=== PATIENT | female | born 1960 | race Caucasian/White ===

== ENCOUNTER → 2017-06-06 | Outpatient (CLI) | payer MEDICAID ==
[2017-06-06 08:46] LABS: Basophils % (A) 0 %; CH 29.3; CHCM 33.5; Eosinophils % (A) 1 %; HCT 43.2 % (34.0-46.0); HDW 3.09; HGB 14.8 gm/dL (11.4-16.0); Luc # (Auto) 0.13; Luc % (Auto) 1; Lymphocytes # (A) 2.4 k/uL (1.0-4.8); Lymphocytes % (A) 26 %; MCH 30.1 pg (25.0-35.0); MCHC 34.2 g/dL (31.0-37.0); Mean Platelet Volume 6.9; Monocytes # (A) 0.5 k/uL (0-1.0); Monocytes % (A) 5 %; Neutrophils # (A) 6.2 k/uL (1.3-7.7); Neutrophils % (A) 67 %; RBC 4.91 m/uL (3.80-5.40); RDW 12.8 % (11.5-15.5); WBC 9.3 k/uL (3.8-10.6); WBC (Perox) 9.72
[2017-06-06 10:21] LABS: ALT 48 U/L (9-52); AST 15 U/L (14-36); Alkaline Phosphatase 70 U/L (38-126); Anion Gap 13 mmol/L; Blood Urea Nitrogen 15 mg/dL (7-17); Calcium 9.9 mg/dL (8.4-10.2); Carbon Dioxide 28 mmol/L (22-30); Chloride 104 mmol/L (98-107); Cholesterol 205 mg/dL (<200); Glucose 130 mg/dL (74-99); HDL Cholesterol 49 mg/dL (40-60); Non-African American GFR(MDRD) >60 (>60 ml/min/1.73 sqM); Potassium 4.4 mmol/L (3.5-5.1); Sodium 145 mmol/L (137-145); Total Bilirubin 0.6 mg/dL (0.2-1.3); Total Protein 7.2 g/dL (6.3-8.2); Triglycerides 111 mg/dL (<150)
[2017-06-06 11:09] LABS: Vitamin B12 526 pg/mL (239-931)
== END | disposition home or self-care (01) ==
LOC: LABWHC1 07:38
PROVIDERS: ATTEND Family Medicine
DX: Z00.00 Encounter for general adult medical examination without abnormal findings (principal)
CPT/HCPCS: 36415; 80053; 80061; 82306; 82607; 84443; 85025

== ENCOUNTER → 2017-06-16 | Outpatient (CLI) | payer MEDICAID ==
--- NOTE | 2017-06-16 08:00 | MR ---
MR lumbar spine wo con lumbago w/sciatic rt side Multiplanar, multiecho imaging of the lumbar spine was obtained without contrast on a 3 Obdulia magnet. REFERENCE:None. FINDINGS: There is a 1 cm cystic lesion in the upper pole of the left kidney. Paraspinal soft tissue s are otherwise normal. Vertebral body height and alignment are maintained. There is no spondylolysis or spondylolisthesis. C ord signal is maintained. The conus ends at the level of the mid body of L2. At T12-L1, there is minimal capsulitis within the facets. At L1-2, there is mild hypertrophic change within the facets. At L2-3, the intervertebral foramina are well maintained. There is a minimal, diffuse disc displaceme nt. There are mild hypertrophic changes and capsulitis within the facets. At L3-4, the intervertebral foramina are well maintained. There is no significant compressive discopa thy. There are minimal hypertrophic changes in the facets. At L4-5, there is mild disc space loss. There is a diffuse disc displacement. The intervertebral fora thelma are well maintained. There are hypertrophic changes in the facets. At L5-S1, there is mild disc space loss. Intervertebral foramina are well maintained. There is no sig nificant compressive discopathy. There moderate hypertrophic change and capsulitis within the facets. IMPRESSION: 1. NO SIGNIFICANT COMPRESSIVE DISCOPATHY OR NEURAL COMPRESSION. 2. DIFFUSE FACET ARTHROPATHY. 3. MILD DEGENERATIVE DISC DISEASE AT MOST LEVELS.
== END | disposition home or self-care (01) ==
LOC: RADMRIMAIN 07:01
PROVIDERS: ATTEND Family Medicine
DX: M51.17 Intervertebral disc disorders with radiculopathy, lumbosacral region (principal); M46.86 Other specified inflammatory spondylopathies, lumbar region
CPT/HCPCS: 72148

== ENCOUNTER → 2017-06-22 | Outpatient (CLI) | payer MEDICAID ==
--- NOTE | 2017-06-22 14:44 | MM ---
Reason for exam: screening (asymptomatic). Last mammogram was performed 2 years ago. History: Patient has history of other cancer at age 54. Family history of breast cancer in paternal grandmother at age 90. Physical Findings: A clinical breast exam by your physician is recommended on an annual basis and results should be correlated with mammographic findings. MG 3D Screening Mammo W/Cad Bilateral CC and MLO view(s) were taken. Prior study comparison: June 10, 2015, right breast MG work up mamm w CAD RT. June 05, 2015, bilateral MG screening mammo w CAD. There are scattered fibroglandular densities. There is no discrete abnormality. No significant changes when compared with prior studies. ASSESSMENT: Negative, BI-RAD 1 RECOMMENDATION: Routine screening mammogram of both breasts in 1 year.
--- NOTE | 2017-06-23 07:11 | WWHP ---
DATE OF SERVICE: 06/22/2017 CHIEF COMPLAINT: The patient is here for her routine gynecologic exam and mammogram. HPI: This is a 57-year-old G3, P2-1-0-2 with an LMP of 11/2016. The patient is status post tubal ligation, which was done about 6 years ago. She states soon after the tubal ligation she did have several months of amenorrhea and then the periods became regular again. They were regular up until 12/14 when they stopped. She has occasional warm flashes, which are not very severe. She denies any vaginal bleeding since November of this year. The patient has been experiencing occasional infrequent right lower quadrant and right pelvic pains, which are very brief. She states she notices that most with certain types of movements such as getting into the back seat of a car. She believes it most likely is muscle pains. She states it typically lasts only a few months when she does experience it. This has been going on for the last 3 months or so. 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 MEDICATIONS: 1. Aleve p.r.n. 2. Fish oil supplement daily. 3. Flax seed oil supplement daily. 4. Vitamin C 500 mg daily. 5. Aspirin 81 mg daily. 6. Vitamin D3, 2000 units daily. ALLERGIES: No known drug allergies. PAST SURGICAL HISTORY: Tubal ligation approximately 2010, heart catheterization which was normal, a cyst removed from the right ear at age 9, colonoscopy in 2014 and skin cancer was removed from the nose. PAST OB HISTORY: Two term vaginal deliveries and one 7 month IUFD which delivered vaginally. PAST SALES AND SERVICE TECHNICIAN HISTORY: She has no history of STDs. SOCIAL HISTORY: She quit smoking in 2014 and has about 4 alcoholic drinks per month and denies drug use. She has been since 02/2017, but has been with her partner since about 2006. 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 FAMILY HISTORY: Mother of some type of advanced gynecologic cancer, but she does not know the type. She also had renal cancer. Father had colon cancer and skin cancer. Father also had CHF. Her mother, brother and grandmother had type 2 diabetes. REVIEW OF SYSTEMS: She states she lost about 120 pounds a few years ago with strict diet and exercise, but has gained about 60 pounds back over the last 2 years. She denies respiratory or cardiac problems. GI: Occasional heartburn. PHYSICAL EXAM: Blood pressure 158/86. Height 5 feet 6 inches. Weight 2011 pounds. Temperature 96.6. Pulse 75. This is a well-developed, heavyset white female who is alert and oriented x3 in no acute distress. HEENT is within normal limits. NECK: Supple without mass or thyromegaly. CHEST AND LUNGS: Clear to auscultation. HEART: Regular rate and rhythm. Breasts are without mass or discharge. Axillary exam is negative for adenopathy. BACK: Negative for CVA tenderness. ABDOMEN: Soft, nontender without palpable masses. PELVIC EXAM: Normal external genitalia with no significant atrophy. Cervix and vagina appear normal. There is no significant atrophy or evidence of prolapse. The uterus is mid position, multiparous, nongravid size and nontender. There are no palpable adnexal masses or tenderness. Rectovaginal exam is negative for mass or tenderness and is negative for occult blood. EXTREMITIES: Nontender. IMPRESSION: 1. A 57-year-old female who is perimenopausal after approximately 6 months of amenorrhea. 2. Intermittent infrequent right lower quadrant and right pelvic pains without any significant physical findings at this time. Differential diagnoses will include ovarian cyst, endometriosis, musculoskeletal abdominal pain as well as possible gastrointestinal pain. PLAN: 1. Pap smear was performed. 2. Self-breast examination was discussed. 3. Mammogram will be done today. 4. Pelvic ultrasound will be scheduled. 5. The patient's elevated blood pressure was discussed with the patient. I have recommended that she do regular blood pressure checks and she states she will do this at work. She will also follow up with Dr. Bonilla for elevated blood pressures. 6. She will return in one year and p.r.n. SUKI
== END | disposition home or self-care (01) ==
LOC: WWCWWP 09:06
PROVIDERS: ATTEND Obstetrics & Gynecology
DX: Z12.31 Encounter for screening mammogram for malignant neoplasm of breast (principal)
CPT/HCPCS: 77063; G0202

== ENCOUNTER → 2017-07-05 | Outpatient (CLI) | payer MEDICAID ==
--- NOTE | 2017-07-05 10:18 | US ---
EXAMINATION TYPE: US pelvis complete transvag DATE OF EXAM: 07/05/2017 COMPARISON: NONE CLINICAL HISTORY: R10.2 Pelvic Pain. TECHNIQUE: Transvaginal (TV) and Transabdominal (TA) Date of LMP: irregular , November 2016 EXAM MEASUREMENTS: Uterus: 6.6 x 4.3 x 5.0 cm Endometrial Stripe: 0.1 cm Right Ovary: 1.6 x 1.2 x 1.3 cm Left Ovary: 1.8 x 0.9 x 1.5 cm 1. Uterus: Anteverted fibroids anterior, 2.4 x 1.6 x 2.4 cm,1.7 x 1.8 x 2.1 cm, 1.1 x 0.6 x 0.7 cm 2. Endometrium: wnl 3. Right Ovary: Obscured by overlying bowel gas portions seen wnl 4. Left Ovary: portions seen wnl 5. Bilateral Adnexa: wnl 6. Posterior cul-de-sac: wnl Uterus is anteverted in shape. Some nabothian cysts are seen towards the cervix. There are heterogene ous hypoechoic lesions identified scattered throughout the uterus could reflect small intrauterine fi broids. No free fluid is seen in pelvic cul-de-sac. IMPRESSION: A few small intrauterine fibroids are felt present. This can be confirmed with pelvic ult rasound if desired. No suspicious thickening of endometrium is seen.
== END ==
LOC: RADUSWWP 08:44
PROVIDERS: ATTEND Obstetrics & Gynecology
DX: D25.9 Leiomyoma of uterus, unspecified (principal); R10.2 Pelvic and perineal pain
CPT/HCPCS: 76830; 76856

== ENCOUNTER → 2017-07-12 | Outpatient (CLI) | payer MEDICAID ==
[2017-07-12 14:15] LABS: Hemoglobin A1C 7.2 % (4.2-6.1)
[2017-07-12 19:34] LABS: ANA w/Reflex to Titer NEGATIVE (NEGATIVE); Cyclic Citrull Pep IgG Unit <0.5 U/mL; Cyclic Citrullinated Pep IgG NEGATIVE (NEGATIVE)
== END | disposition home or self-care (01) ==
LOC: LABWHC1 13:12
PROVIDERS: ATTEND Family Medicine
DX: M25.50 Pain in unspecified joint (principal); R73.01 Impaired fasting glucose
CPT/HCPCS: 36415; 83036; 86038; 86200; 86431

== ENCOUNTER → 2018-03-22 | Outpatient (CLI) | payer MEDICAID ==
[2018-03-22 18:41] LABS: Hemoglobin A1C 5.8 % (4.0-6.0)
== END | disposition home or self-care (01) ==
LOC: LABWHC1 08:01
PROVIDERS: ATTEND Internal Medicine Endocrinology, Diabetes & Metabolism
DX: E11.65 Type 2 diabetes mellitus with hyperglycemia (principal)
CPT/HCPCS: 36415; 83036

== ENCOUNTER → 2018-06-14 | Outpatient (CLI) | payer MEDICAID ==
[2018-06-14 14:46] LABS: Albumin 4.7 g/dL (3.5-5.0); Calcium 10.4 mg/dL (8.4-10.2); Magnesium 2.2 mg/dL (1.6-2.3); Potassium 5.1 mmol/L (3.5-5.1); Total Bilirubin 0.5 mg/dL (0.2-1.3); Total Protein 7.3 g/dL (6.3-8.2)
== END | disposition home or self-care (01) ==
LOC: LABWHC1 14:05
PROVIDERS: ATTEND Internal Medicine Endocrinology, Diabetes & Metabolism
DX: E66.9 Obesity, unspecified (principal); R53.82 Chronic fatigue, unspecified
CPT/HCPCS: 36415; 80053; 82306; 83735

== ENCOUNTER → 2021-07-22 | Outpatient (CLI) | payer BC ==
[~2021-07-22] MED LIST: DOBUTamine DRIP for NUC MED 500 MG in DEXTROSE/WATER 1 250ML.BAG IV PRN
--- NOTE | 2021-07-22 13:54 | ECHOS ---
STRESS ECHOCARDIOGRAM INDICATIONS: Chest pain BASELINE HEART RATE: 58 BASELINE BLOOD PRESSURE: 135/97 MAXIMUM HEART RATE: 139 MAXIMUM BLOOD PRESSURE: 177/73 85% MPHR: 135 100% MPHR: 159 METS: NA MAXIMUM STAGE REACHED: NA TOTAL EXERCISE TIME: 7:46 CLINICAL INFORMATION: Baseline EKG revealed normal sinus rhythm with nonspecific inferolateral ST abnormality. Patient was administered dobutamine as per protocol and the heart rate went up to 139 beats per minute. EKG revealed more prominent ST-segment changes, but these are considered inconclusive because of resting changes to begin with. Rare PVCs were noted. No angina was reported. By EKG criteria, this is an inconclusive dobutamine stress test because of resting EKG changes. No significant arrhythmia. No angina was noted. Baseline echo images revealed normal wall motion and wall thickening of all segments. With dobutamine administration as per protocol, there was progressive increase in contractility noted without any evidence of hypokinesia. There is no stress-induced ischemia on this study. FINAL IMPRESSION: 1. By EKG criteria this is an inconclusive dobutamine stress test because of resting EKG changes. 2. Normal dobutamine stress echocardiogram without evidence of ischemia. MMODL / IJN: [id number] /
== END | disposition home or self-care (01) ==
LOC: RADNMMAIN 09:54
PROVIDERS: ATTEND Family Medicine
DX: R07.9 Chest pain, unspecified (principal)
CPT/HCPCS: 93351

== ENCOUNTER → 2021-08-11 | Outpatient (CLI) | payer BC ==
--- NOTE | 2021-08-13 13:42 | MM ---
Reason for exam: screening (asymptomatic). Last mammogram was performed 4 years and 2 months ago. History: Patient has history of other cancer at age 54. Family history of breast cancer in paternal grandmother at age 90. Physical Findings: A clinical breast exam by your physician is recommended on an annual basis and results should be correlated with mammographic findings. MG 3D Screening Mammo W/Cad Bilateral CC and MLO view(s) were taken. XCCL view(s) were taken of the left breast. Prior study comparison: June 22, 2017, bilateral MG 3d screening mammo w/cad. June 10, 2015, right breast MG work up mamm w CAD RT. June 05, 2015, bilateral MG screening mammo w CAD. Finding: There is an enlarging 6.7 mm equal density (isodense), circumscribed round mass in the 6 o'clock anterior position of the left breast. New finding since June 22, 2017, June 10, 2015, and June 05, 2015. ASSESSMENT: Incomplete: need additional imaging evaluation, BI-RAD 0 RECOMMENDATION: Ultrasound of the left breast. [facility] will attempt to contact patient to return for ultrasound.
== END | disposition home or self-care (01) ==
LOC: RADMAMWWP 15:46
PROVIDERS: ATTEND Family Medicine
DX: Z12.31 Encounter for screening mammogram for malignant neoplasm of breast (principal); Z80.3 Family history of malignant neoplasm of breast
CPT/HCPCS: 77063; 77067

== ENCOUNTER → 2021-09-08 | Outpatient (CLI) | payer BC ==
--- NOTE | 2021-09-08 14:13 | USB ---
Reason for exam: additional evaluation requested from abnormal screening. History: Patient is postmenopausal and has history of other cancer at age 54. Family history of breast cancer in paternal grandmother at age 90. Physical Findings: Nurse did not find any significant physical abnormalities on exam. US Breast Workup Limited LT Left limited breast ultrasound including focal area of concern, retroareolar and axilla demonstrates a 0.4 x 0.6 x 0.5cm oval, cystic lesion at 6 o'clock, benign thin walled cyst, believed to correspond to mammographic abnormality. These results were verbally communicated with the patient and result sheet given to the patient on 09/08/21. ASSESSMENT: Benign, BI-RAD 2 RECOMMENDATION: Return to routine screening mammogram schedule for both breasts.
== END | disposition home or self-care (01) ==
LOC: RADUSWWP 07:43
PROVIDERS: ATTEND Family Medicine
DX: N60.02 Solitary cyst of left breast (principal); Z85.89 Personal history of malignant neoplasm of other organs and systems; Z80.3 Family history of malignant neoplasm of breast; Z78.0 Asymptomatic menopausal state

== ENCOUNTER → 2024-11-09 | Outpatient (CLI) | payer BC ==
--- NOTE | 2024-11-11 02:16 | MM ---
Reason for Exam: Screening (asymptomatic). Last mammogram was performed 3 year(s) and 3 month(s) ago. Patient History: Menarche at age 11. First Full-Term at age 22. Postmenopausal. Other cancer, age 54. Paternal grandmother had breast cancer, age 90. Risk Values: Angela 5 year model risk: 1.6%. NCI Lifetime model risk: 6.4%. Prior Study Comparison: 06/10/2015 Right Diagnostic Mammogram, [facility]. 06/22/2017 Bilateral Screening Mammogram, [facility]. 08/11/2021 Bilateral Screening Mammogram, [facility]. Tissue Density: There are scattered areas of fibroglandular density. Findings: Analyzed By CAD. The pattern is symmetrical. No significant interval change evident. Chronic nodularity within the left breast No suspicious groups of microcalcifications, spiculated or lobular masses, architectural distortion or other secondary signs of malignancy are mammographically apparent. Overall Assessment: Benign, BI-RAD 2 Management: Screening Mammogram of both breasts in 1 year. A negative mammogram report should not preclude additional follow up of suspicious palpable abnormalities. Patient should continue monthly self breast exam. A clinical breast exam by your physician is recommended on an annual basis and results should be correlated with mammographic findings. Note on Angela scores and lifetime risk: 1. A Angela score greater than 3% is considered moderate risk. If this is the case, consider specialist referral to assess eligibility for a risk reducing agent. 2. If overall lifetime risk for the development of breast cancer is 20% or higher, the patient may qualify for future screening with alternating mammogram and breast MRI. [facility], , 11/11/2024 2:13 AM. Electronically signed and approved by: Hayden Juárez D.O. Radiologis
== END | disposition home or self-care (01) ==
LOC: RADMAMWWP 11:08
PROVIDERS: ATTEND Family Medicine
DX: Z12.31 Encounter for screening mammogram for malignant neoplasm of breast (principal); R92.323 Mammographic fibroglandular density, bilateral breasts; Z78.0 Asymptomatic menopausal state; Z80.3 Family history of malignant neoplasm of breast
CPT/HCPCS: 77067

== ENCOUNTER 2024-12-22 10:37 | Inpatient (IN) | payer BC ==
[2024-12-22] MEDS: LIDOCAINE 1% INJ 10MG/ML (20 ML MDV) SQ ONE (10:54)
[2024-12-22] MEDS: VERAPAMIL SYRINGE (5 MG/10 ML) INTRAARTER ONE (10:54)
[2024-12-22] MEDS: MIDAZOLAM 2 MG/2 ML VIAL IVP ONE ×2 (10:54→11:05)
[2024-12-22] MEDS: fentaNYL (PF) 50 MCG/ML 2 ML AMP IVP ONE ×2 (10:54→11:04)
[2024-12-22] MEDS: HEPARIN SODIUM,PORCINE 10,000 UNIT in SODIUM CHLORIDE 0.9% 1,000 ML IRRIGATION ONE (11:00)
[2024-12-22] MEDS: SODIUM CHLORIDE 0.9% 1,000 ML IV ONE ×2 (11:00→11:36)
[2024-12-22] MEDS: HEPARIN SODIUM,PORCINE (1 ML) 2,500 UNIT in SODIUM CHLORIDE 0.9% 250 ML IRRIGATION ONE (11:00)
[2024-12-22] MEDS: HEPARIN SODIUM 1,000 UN/ML (10ML VL) IVP ONE (11:06)
[2024-12-22] MEDS: TICAGRELOR 90 MG TAB PO ONE (11:09)
[2024-12-22] MEDS: ONDANSETRON 4 MG/2 ML VIAL IVP ONE (11:21)
[2024-12-22] MEDS: IOPAMIDOL-370 100ML BTL INJ ONE ×2 (11:21→11:41)
[2024-12-22] MEDS: niCARdipine 25 MG/10 ML VIAL INTRACORON ONE (11:36)
[2024-12-22] MEDS ORDERED: ATROPINE SULFATE 0.1 MG/ML 10ML SYRINGE IV PRN (11:52)
[2024-12-22] MEDS ORDERED: MAG HYDROX/AL HYDROX/SIMETH 30 ML CUP PO PRN (11:52)
[2024-12-22] MEDS ORDERED: NITROGLYCERIN SL TABS 0.4 MG TAB SUBLINGUAL PRN (11:52)
[2024-12-22] MEDS ORDERED: ZOLPIDEM 5 MG TAB PO PRN (11:52)
[2024-12-22] MEDS ORDERED: RX INFO: IV CONTRAST WAS GIVEN 1 EACH MISC MISCELLANE PRN (11:52)
--- NOTE | 2024-12-22 11:58 | P.PCN ---
Date of Procedure: 12/22/24 Operative Findings: PERCUTANEOUS CORONARY INTERVENTION Performing physician Abraham Dorsey M.D. Procedure Performed: 1. Successful stenting of the proximal LAD using 3.5 x 15 mm Xience drug-eluting stent with an excellent angiographic results. 2. Adjunctive use of IVUS and aspiration thrombectomy Indication: This is a 64-year-old female patient with a smoking who presented to the hospital with chest discomfort and EKG concerning for acute ST elevation myocardial infarction which she underwent a heart catheterization by Dr. Lee and was found to have occluded LAD in the proximal portion. Approach: Right radial artery Complications: None Level of Sedation: Moderate with a sedation length of 43 minutes Procedure Discussion: Please refer to diagnostic heart catheterization was performed earlier. Anticoagulation was initiated using heparin with continuous ACT monitoring and subsequently she was loaded with 180 of Brilinta. Subsequently the left main was engaged using JL 3.5 guiding catheter. I did across the lesion in the proximal LAD using a whisper wire. The wire was initially advanced to the LAD over what we thought is the LAD. Subsequently we did balloon angioplasty using 2.5 x 12 mm balloon. An angiogram after that was performed and showed that the wire was in the diagonal branch and not the LAD. Also the angiogram showed that no flow in the LAD but good flow in the diagonal. subsequently I left the wire in the diagonal branch and advanced another wire to the LAD and then I did aspiration thrombectomy from the LAD. Intravascular ultrasound was performed and showed a diameter between 3 to 3.25 mm I did deploy 3.0 x 15 mm stent which was postdilated initially using 3.25 mm NC balloon and subsequently 3.5 mm NC balloon. Final angiogram showed excellent angiographic results. Postprocedure Management: 1. Dual antiplatelet therapy using aspirin and Brilinta for at least 12 months 2. Aggressive cholesterol control including smoking cessation 3. Risk factors modification
[2024-12-22 12:08] LABS: Glucose,Whole Blood 167 mg/dL (70-110)
[2024-12-22] MEDS ORDERED: HYDROmorphone 0.5 MG/0.5 ML SYRINGE IVP PRN (12:45)
[2024-12-22] MEDS: ONDANSETRON 4 MG/2 ML VIAL IVP PRN (12:58)
[2024-12-22] MEDS: HYDROmorphone 0.5 MG/0.5 ML SYRINGE IVP ONE (12:58)
[2024-12-22 13:16] VITALS: BMI 29.0
[2024-12-22 13:18] LABS: HCT 38.1 % (34.0-46.0); HGB 12.8 gm/dL (11.4-16.0); MCH 30.1 pg (25.0-35.0); MCHC 33.6 g/dL (31.0-37.0); MCV 89.5 fL (80.0-100.0); Mean Platelet Volume 6.8; Platelet Count 212 k/uL (150-450); RBC 4.26 m/uL (3.80-5.40); RDW 12.2 % (11.5-15.5); WBC 10.7 k/uL (3.8-10.6)
[2024-12-22 13:38] LABS: African American GFR (CKD) >90 (>60 ml/min/1.73 sqM); Anion Gap 7 mmol/L; Blood Urea Nitrogen 12 mg/dL (7-17); Calcium 8.4 mg/dL (8.4-10.2); Carbon Dioxide 23 mmol/L (22-30); Chloride 108 mmol/L (98-107); Glucose 161 mg/dL (74-99); Non-African American GFR(CKD) >90 (>60 ml/min/1.73 sqM); Potassium 4.1 mmol/L (3.5-5.1); Sodium 138 mmol/L (137-145)
[2024-12-22] MEDS: SODIUM CHLORIDE 0.9% 1,000 ML in EMPTY BAG 1 BAG IV SCH (13:54)
[2024-12-22] MEDS: PANTOPRAZOLE 40 MG/10 ML VIAL IVP SCH (13:55)
[2024-12-22 16:13] LABS: Glucose,Whole Blood 145 mg/dL (70-110)
[2024-12-22 20:15] LABS: Glucose,Whole Blood 144 mg/dL (70-110)
[2024-12-22] MEDS: TICAGRELOR 90 MG TAB PO SCH (20:40)
[2024-12-22] MEDS: ATORVASTATIN 80 MG TAB PO SCH (20:40)
[2024-12-22] MEDS: METOPROLOL TARTRATE 25 MG TAB PO SCH (20:41)
--- NOTE | 2024-12-22 22:51 | CONS ---
CONSULTATION CHIEF COMPLAINT: Chest pain. HISTORY OF PRESENT ILLNESS: Darleen is a 64-year-old lady with multiple coronary risk factors including hypertension, diabetes, dyslipidemia, and smoking, who presented to [facility] with sudden onset chest pain that started half an hour prior to her arrival in the emergency room. She had an EKG that showed ST-segment elevation in the anterior leads with subendocardial ischemic changes involving the inferior leads, and I advised them to transfer the patient to [facility] emergently for primary angioplasty. 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 She appears stable hemodynamically, still has chest pain, and we proceeded with emergent catheterization expeditiously. PAST MEDICAL HISTORY: Significant for hypertension, diabetes, dyslipidemia. We have a list of her medications. ALLERGIES: Are as charted. MEDICATIONS: Are as charted. FAMILY HISTORY: Negative for premature coronary artery disease. SOCIAL HISTORY: Significant for smoking. There is no history of ETOH abuse or drug abuse. REVIEW OF SYSTEMS: HEENT: Unremarkable. CARDIAC: As described above. RESPIRATORY: Negative. GI: Negative. GENITOURINARY: Negative. ALLERGY/IMMUNOLOGY: Negative. SKIN: Negative. MUSCULOSKELETAL: Significant for arthritis. PSYCHOSOCIAL: Negative. DERM: Negative. CONSTITUTIONAL: Negative. ONCOLOGICAL: Negative. BARREL INSPECTOR: Negative. Rest of the system review is not relevant. PHYSICAL EXAMINATION: GENERAL: Comfortable at rest. VITAL SIGNS: Stable. CHEST: Reveals good air entry bilaterally. HEART: Reveals first and second heart sounds. No gallop. No murmur. No rub. ABDOMEN: Soft, nontender. EXTREMITIES: Did not reveal edema. Peripheral pulses are felt. Labs are pending at this time. EKG is as described above. ASSESSMENT: Acute anterior wall myocardial infarction. PLAN: The patient will undergo emergent cardiac catheterization with a view to performing primary angioplasty. MMODL / IJN: [id number] /
--- NOTE | 2024-12-22 22:51 | CC ---
CARDIAC CATHETERIZATION REPORT INDICATION: Acute anterior wall myocardial infarction. PROCEDURE NOTE: After obtaining informed consent, left heart catheterization, coronary angiogram were performed via the right radial artery using standard Lesly catheters. The patient tolerated the procedure well without any obvious immediate complications. The patient received moderate conscious sedation. Total sedation time was 11 minutes. Right radial artery access was obtained using Seldinger technique, 6-Setswana sheath was placed. Catheters and wires were floated into the ascending aorta under fluoroscopic guidance. The patient received verapamil and had already received heparin at the hospital, so we did not give any further heparin. FINDINGS: 1. Hemodynamics: Left ventricular end-diastolic pressure is 8 to 10 mm. There is no significant gradient across the aortic valve. 2. Left ventriculogram: Left ventriculogram is not performed. ANGIOGRAPHIC DATA: Right coronary artery is a large dominant vessel that shows mild nonobstructive disease. There are extensive collaterals from right to the distal LAD. Left main coronary artery is a normal-sized vessel and is free of stenosis. Divides into left anterior descending coronary artery and circumflex coronary artery. LAD is occluded in its midportion. Circumflex coronary artery is a nondominant vessel, it is free of significant disease. CONCLUSIONS: Acute occlusion of the mid LAD with extensive collaterals from the right to the distal LAD. PLAN: The patient will undergo angioplasty of the LAD by Dr. Dorsey. BASILIA / BEATRICE: [id number] /
[2024-12-23 05:44] LABS: Basophils % (A) 0 %; Eosinophils # (A) 0.3 k/uL (0-0.7); Eosinophils % (A) 3 %; HCT 39.5 % (34.0-46.0); HGB 13.1 gm/dL (11.4-16.0); Lymphocytes # (A) 2.3 k/uL (1.0-4.8); Lymphocytes % (A) 25 %; MCHC 33.2 g/dL (31.0-37.0); MCV 90.2 fL (80.0-100.0); Mean Platelet Volume 6.9; Monocytes # (A) 0.6 k/uL (0-1.0); Monocytes % (A) 7 %; Neutrophils # (A) 5.9 k/uL (1.3-7.7); Neutrophils % (A) 64 %; Platelet Count 209 k/uL (150-450); RBC 4.37 m/uL (3.80-5.40); RDW 12.4 % (11.5-15.5); WBC 9.2 k/uL (3.8-10.6)
[2024-12-23 05:52] LABS: ALT 31 U/L (4-34); AST 67 U/L (14-36); African American GFR (CKD) >90 (>60 ml/min/1.73 sqM); Alkaline Phosphatase 55 U/L (38-126); Anion Gap 8 mmol/L; Blood Urea Nitrogen 10 mg/dL (7-17); Calcium 9.5 mg/dL (8.4-10.2); Carbon Dioxide 26 mmol/L (22-30); Chloride 105 mmol/L (98-107); Glucose 139 mg/dL (74-99); Non-African American GFR(CKD) >90 (>60 ml/min/1.73 sqM); Potassium 4.3 mmol/L (3.5-5.1); Sodium 139 mmol/L (137-145); Total Bilirubin 0.8 mg/dL (0.2-1.3); Total Protein 6.3 g/dL (6.3-8.2)
[2024-12-23 07:01] LABS: Glucose,Whole Blood 149 mg/dL (70-110)
[2024-12-23] MEDS: ASPIRIN 81 MG PO SCH (08:09)
--- NOTE | 2024-12-23 10:17 | CA ---
Transthoracic Echo Report Name: Darleen White Age: 64 Gender: F : 1960 Exam Date: 12/22/2024 14:10 Exam Location: [place] [facility] Ht (in): 66 Wt (lb): 180 Ordering Physician: Abraham Dorsey MD ([id number]) Attending/Referring Phys: Lead Front End Developer Beverly Hess RDCS Procedure CPT: Indications: ACS Cardiac Hx: Technical Quality: Fair Contrast 1: Definity Total Dose (mL): 2 Contrast 2: Total Dose (mL): MEASUREMENTS (Male / Female) Normal Values 2D ECHO LV Diastolic Diameter PLAX 5.1 cm 4.2 - 5.9 / 3.9 - 5.3 cm LV Systolic Diameter PLAX 3.5 cm IVS Diastolic Thickness 1.0 cm 0.6 - 1.0 / 0.6 - 0.9 cm LVPW Diastolic Thickness 1.1 cm 0.6 - 1.0 / 0.6 - 0.9 cm LV Relative Wall Thickness 0.4 RV Internal Dim ED PLAX 1.6 cm LA Systolic Diameter LX 4.2 cm 3.0 - 4.0 / 2.7 - 3.8 cm LA Volume 54.7 cm??? 18 - 58 / 22 - 52 cm??? LA Volume Index 27.8 cm???/m??? 16 - 28 cm???/m??? M-MODE Aortic Root Diameter MM 3.0 cm LA Systolic Diameter MM 3.9 cm LA Ao Ratio MM 1.3 AV Cusp Separation MM 1.9 cm DOPPLER AV Peak Velocity 165.1 cm/s AV Peak Gradient 10.9 mmHg AI Peak Velocity 335.0 cm/s AI Peak Gradient 44.9 mmHg AI Pressure Half Time 549.1 ms MV Area PHT 3.3 cm??? Mitral E Point Velocity 81.0 cm/s Mitral A Point Velocity 109.5 cm/s Mitral E to A Ratio 0.7 MV Deceleration Time 227.4 ms TR Peak Velocity 247.6 cm/s TR Peak Gradient 24.5 mmHg FINDINGS Left Ventricle Left ventricular ejection fraction is estimated at 40%Mildly increased posterior wall thickness. Left ventricular cavity size normal. Hypokinetic septum.and distal anterior wall Right Ventricle Normal right ventricular size and function. Right Atrium Left Atrium Mildly increased left atrial diameter. Mildly increased left atrial volume. Mitral Valve Structurally normal mitral valve. Trace to mild mitral regurgitation. No mitral stenosis. Aortic Valve Trileaflet aortic valve. Mild aortic regurgitation. No aortic stenosis. Tricuspid Valve Structurally normal tricuspid valve. Mild tricuspid regurgitation. No tricuspid stenosis. Pulmonic Valve Structurally normal pulmonic valve. Trace pulmonic regurgitation. No pulmonic stenosis. Pericardium No pericardial or pleural effusion. Aorta Normal size aortic root and proximal ascending aorta. CONCLUSIONS Ischemic cardiomyopathy with moderate LV dysfunction with an ejection fraction of 40% secondary to prior myocardial infarction in LAD distribution Mild aortic regurgitation Previewed by: Dr. Syed Lee MD (Electronically Signed) Final Date: 23 December 2024 10:16
[2024-12-23] MEDS ORDERED: ALBUTEROL HFA INHALER INHALATION PRN (11:16)
[2024-12-23 11:34] LABS: Glucose,Whole Blood 117 mg/dL (70-110)
--- NOTE | 2024-12-23 11:34 | P.HPIM ---
History of Present Illness H&P Date: 12/23/24 Patient is a 64-year female with coronary artery disease, type 2 diabetes, asthma, history of cancer presenting with chest pain and STEMI status post left heart catheterization with proximal LAD stent. Patient states 2 days ago after work she felt a pressure-like pain across her upper back and shoulders. She did not think too much of it at the time and tried to sleep it off. The next morning she woke up with chest pain that she describes as a constant, pressure- like pain, that radiated down both arms and neck. She also says she felt nauseous and threw up a couple times at home before deciding to go to the emergency department. She is being seen status post left heart catheterization with stent placement in the proximal LAD. She feels much better after the procedure, although she says she had some difficulty sleeping. Patient denies any current chest pain, fever, chills, shortness of breath, nausea, vomiting, abdominal pain. Echocardiogram Doppler showing ischemic cardiomyopathy with moderate LV dysfunction with an ejection fraction of 40% secondary to prior myocardial infarction in LAD distribution, mild aortic regurg WBC 9.2, Hgb 13.1, platelet 209, sodium 139, potassium 4.3, BUN 10, creatinine 0.6, glucose 139. T98.5 F, DC 62, RR 14, BP 125/83 ED documentation reviewed. Review of systems: Pertinent positives and negatives as discussed in HPI, a complete review of systems was performed and all other systems are negative. Social history: Tobacco: Intermittent smoker for the past 15 years Alcohol: Rarely Recreational drugs: Denies illicit drug use Physical examination: Vital signs reviewed General: non toxic, no distress, appears at stated age, normal weight Derm: no unusual rashes/lesions, warm Head: atraumatic, normocephalic, symmetric Eyes: EOMI, anicteric sclera, pupils equal round reactive to light ENT: Nose and ears atraumatic Mouth: no lip lesion, mucus membranes moist Cardiovascular: S1S2 reg, no murmur, positive dorsalis pedis pulse bilateral, no edema Lungs: CTA bilateral, no rhonchi, no rales, no accessory muscle use Abdominal: soft, nontender to palpation, no guarding Ext: muscle strength 5 out of 5 in all 4 extremities grossly, no gross muscle atrophy Neuro: CN II-XI grossly intact, no gross focal neuro deficits Psych: Alert, oriented to person, place, and time Assessment/Plan: Patient is a 64-year female with coronary artery disease, type 2 diabetes, asthma, history of cancer presenting with chest pain and STEMI status post left heart catheterization with proximal LAD stent. #. STEMI status post left heart catheterization with proximal LAD stent #. Ischemic cardiomyopathy (EF 40%) #. Coronary artery disease #. Hypertension Echocardiogram Doppler showing ischemic cardiomyopathy with moderate LV dysfunction with an ejection fraction of 40% Placed on dual anti-platelet therapy with aspirin 81 mg and Brilinta 90 mg for least 1 month Atorvastatin 80 mg p.o. at bedtime Placed on losartan 25 mg p.o. daily by cardiology Nitrostat 0.4 mg sublingual as needed Recommended smoking cessation Cardiology monitoring Cardiology following #. Type 2 diabetes Hold home metformin Placed on low scale insulin sliding scale Accu-Cheks Monitor for hypoglycemia #. Symptomatic bradycardia Was given 0.5 mg IV atropine by cardiology Chronic: #. History of asthma Resume home as inhalers #. Insomnia Melatonin 5 mg PO at bedtime as needed F: N/A E: Replete as needed N: Heart healthy diet A: Independently ambulatory at baseline DVT prophylaxis: Lovenox 40 SQ daily The patient is admitted with an anticipated left than 2 midnight stay for evaluation of STEMI. CODE STATUS: Full code Discussed with: Patient Anticipated discharge place: Home Kamaljit Thomas MD PGY-1 IM Dictation was produced using [employer] dictation software. please excuse any grammatical, word or spelling errors. I saw and evaluated the patient during the devine and critical portions of this encounter, and discussed the case in detail with the resident author of this note, I agree with the Assessment and Plan, and my changes, if any, are highlighted in blue. Past Medical History Past Medical History: Asthma, Cancer, CVA/TIA, Diabetes Mellitus, GERD/Reflux, Hyperlipidemia, Hypertension, Osteoarthritis (OA), Skin Disorder Additional Past Medical History / Comment(s): BASAL CELL CA LT NOSTRIL, OCCASIONAL ECZEMA ON ELBOWS-NONE @ THIS TIME, ARTHRITIS KNEES, HIPS & BACK, ? BLOOD CLOT RT LEG-USES TEDS, hyponatremia, R lung collapsed 1994, TIA 1998? History of Any Multi-Drug Resistant Organisms: None Reported Past Surgical History: Adenoidectomy, Heart Catheterization, Tonsillectomy, Tubal Ligation Additional Past Surgical History / Comment(s): HEART CATH 2010-NARROW LAD, SPONTANEOUS PNEUMOTHORAX 1994 WITH CHEST TUBE-HAD BRONCHOSCOPY Past Anesthesia/Blood Transfusion Reactions: No Reported Reaction Past Psychological History: No Psychological Hx Reported Smoking Status: Current every day smoker Past Alcohol Use History: Rare Additional Past Alcohol Use History / Comment(s): STARTED SMOKING 1990 SOCIALLY & WHEN STRESSED-QUIT A FEW YEARS & STARTED AGAIN ABOUT 2006-SMOKES ON WEEKENDS Past Drug Use History: None Reported - Past Family History Mother Family Medical History: Cancer, Diabetes Mellitus, Eye Disorder, Hypertension Additional Family Medical History / Comment(s): 2011 FROM [place]- FEMALE, HX GLAUCOMA Father Family Medical History: Cancer, Congestive Heart Failure (CHF), Coronary Artery Disease (CAD) Additional Family Medical History / Comment(s): STENTS, 3RD DEGREE HEART- BLOCK- PACEMAKER,COLON CA-ERIC CELL CA Medications and Allergies Home Medications Medication Instructions Recorded Confirmed Type Albuterol Sulfate [Ventolin HFA] 2 puff INHALATION RT-Q4H PRN 12/22/24 12/22/24 History Aspirin EC [Ecotrin Low Dose] 81 mg PO Q7D 12/22/24 12/22/24 History Fluticasone Propion/Salmeterol 1 puff INHALATION RT-BID 12/22/24 12/22/24 History [Wixela 250-50 Inhub] Losartan [Cozaar] 50 mg PO HS 12/22/24 12/22/24 History Rosuvastatin [Crestor] 10 mg PO HS 12/22/24 12/22/24 History metFORMIN HCL [Glucophage] 500 mg PO BID 12/22/24 12/22/24 History Allergies Allergy/AdvReac Type Severity Reaction Status Date / Time No Known Allergies Allergy Verified 12/22/24 16:52 Physical Exam Osteopathic Statement: *. No significant issues noted on an osteopathic structural exam other than those noted in the History and Physical/Consult. Vitals: Vital Signs Temp Pulse Pulse Resp BP BP Pulse Ox 12/23/24 07:00 77 16 109/73 97 12/23/24 06:00 68 16 113/88 95 12/23/24 05:00 67 18 124/86 97 12/23/24 04:00 98.1 F 70 15 107/59 98 12/23/24 03:00 61 17 137/82 98 12/23/24 02:00 71 17 101/53 96 12/23/24 01:00 66 17 123/67 96 12/23/24 00:15 66 16 123/67 96 12/23/24 00:00 66 19 140/82 96 12/22/24 23:30 69 18 97 12/22/24 23:00 67 17 125/82 96 12/22/24 22:30 73 16 97 12/22/24 22:00 88 16 115/73 93 L 12/22/24 21:30 68 16 115/73 95 12/22/24 21:00 64 15 96 12/22/24 20:30 97.9 F 70 16 121/66 96 12/22/24 20:15 75 12 121/66 98 12/22/24 20:00 70 18 96 12/22/24 19:45 79 17 98 12/22/24 19:30 76 12 97 12/22/24 19:15 77 13 126/62 98 12/22/24 19:00 69 18 98 12/22/24 18:45 72 17 98 12/22/24 18:30 80 19 97 12/22/24 18:15 90 21 125/63 97 12/22/24 18:00 68 12 97 12/22/24 17:45 82 19 96 12/22/24 17:30 83 13 131/78 97 12/22/24 17:15 80 14 131/78 12/22/24 17:00 85 12 114/73 98 12/22/24 16:45 76 13 114/73 99 12/22/24 16:30 64 15 114/73 98 12/22/24 16:15 77 17 114/73 98 12/22/24 16:00 98.2 F 62 14 114/69 99 12/22/24 15:45 74 15 114/69 97 12/22/24 15:37 69 13 114/69 98 12/22/24 15:30 82 25 H 114/69 98 12/22/24 15:15 114/69 12/22/24 15:00 68 20 99 12/22/24 14:45 78 14 117/64 99 12/22/24 14:37 71 19 117/64 100 12/22/24 14:30 73 16 115/70 99 12/22/24 14:15 73 19 115/70 98 12/22/24 14:00 80 13 115/62 98 12/22/24 13:45 68 13 139/77 100 12/22/24 13:37 69 21 139/77 100 12/22/24 13:30 79 10 L 120/68 99 12/22/24 13:15 74 15 117/44 99 12/22/24 13:09 98 12/22/24 13:00 69 20 111/66 99 12/22/24 12:50 97.9 F 63 13 111/66 100 12/22/24 12:40 56 L 14 112/63 99 12/22/24 12:30 57 L 15 112/63 100 12/22/24 12:27 51 L 13 112/63 100 Intake and Output 12/22/24 12/23/24 12/23/24 22:59 06:59 14:59 Intake Total 450 300 Output Total 1275 1100 0 Balance -825 -800 0 Intake: IV 450 300 Sodium Chloride 0.9% 1, 450 300 000 ml In Empty Bag 1 bag @ 75 mls/hr IV .[id number] [facility] Rx#:[id number] Output: Urine 1275 1100 0 Other: Voiding Method Toilet Toilet Weight 86.4 kg Results CBC & Chem 7: 12/23/24 05:24 12/23/24 05:24 Labs: Abnormal Lab Results - Last 24 Hours (Table) 12/22/24 12/22/24 12/22/24 Range/Units 12:06 12:59 12:59 WBC 10.7 H (3.8-10.6) k/uL Chloride 108 H (98-107) mmol/L Glucose 161 H (74-99) mg/dL POC Glucose (mg/dL) 167 H (70-110) mg/dL AST (14-36) U/L Troponin I (0.000-0.034) ng/mL 12/22/24 12/22/24 12/22/24 Range/Units 12:59 16:01 20:14 WBC (3.8-10.6) k/uL Chloride (98-107) mmol/L Glucose (74-99) mg/dL POC Glucose (mg/dL) 145 H 144 H (70-110) mg/dL AST (14-36) U/L Troponin I 1.250 H* (0.000-0.034) ng/mL 12/23/24 12/23/24 Range/Units 05:24 07:00 WBC (3.8-10.6) k/uL Chloride (98-107) mmol/L Glucose 139 H (74-99) mg/dL POC Glucose (mg/dL) 149 H (70-110) mg/dL AST 67 H (14-36) U/L Troponin I (0.000-0.034) ng/mL Thrombosis Risk Factor Assmnt - Choose All That Apply Any of the Below Risk Factors Present?: Yes Each Factor Represents 1 point: Obesity (BMI >25) Other Risk Factors: No Other congenital or acquired thrombophilia - If yes, enter type in comment: No Thrombosis Risk Factor Assessment Total Risk Factor Score: 1 Thrombosis Risk Factor Assessment Level: Low Risk
[2024-12-23] MEDS: INSULIN ASPART (NovoLOG) 100 UNIT/ML VIAL SQ SCH (11:39)
[2024-12-23] MEDS: FUROSEMIDE 20 MG TAB PO SCH (11:40)
[2024-12-23] MEDS: LOSARTAN 25 MG TAB PO SCH (12:18)
[2024-12-23 16:37] LABS: Glucose,Whole Blood 179 mg/dL (70-110)
[2024-12-23] MEDS: MELATONIN 5 MG TABLET PO PRN (20:26)
--- NOTE | 2024-12-23 21:48 | PN ---
PROGRESS NOTE SUBJECTIVE: Darleen is a 64-year-old lady, who is admitted to hospital with acute anterior wall myocardial infarction and underwent emergent cardiac catheterization and angioplasty of the LAD. Her ejection fraction is 40%. She is feeling much better. Does not have any chest pain. She is not short of breath. OBJECTIVE: VITAL SIGNS: Heart rate is 62 beats per minute, blood pressure is 125/83, respiratory rate is 18. CHEST: Reveals good air entry bilaterally. HEART: Reveals first and second heart sounds. No gallop. No murmur. ABDOMEN: Soft, nontender. EXTREMITIES: Did not reveal any edema. Peripheral pulses are felt. MEDICATIONS: The patient is on, 1. Aspirin. 2. Lipitor. 3. Lopressor. 4. Brilinta. I am going to add Lasix 20 mg daily as she was somewhat short of breath last night and losartan 25 mg daily. She can be transferred out of ICU and hopefully home on Tuesday. ASSESSMENT: 1. Acute anterior wall myocardial infarction, status post catheterization and angioplasty of the LAD. 2. Ischemic cardiomyopathy. PLAN: The patient is doing well. She will continue current medications. See my orders. Transfer the patient out of ICU. MMODL / IJN: [id number] /
[2024-12-23 21:52] LABS: Glucose,Whole Blood 117 mg/dL (70-110)
[2024-12-24 05:46] LABS: Basophils % (A) 0 %; Eosinophils # (A) 0.3 k/uL (0-0.7); Eosinophils % (A) 5 %; HCT 39.1 % (34.0-46.0); Lymphocytes # (A) 2.6 k/uL (1.0-4.8); Lymphocytes % (A) 36 %; MCH 29.9 pg (25.0-35.0); MCHC 33.3 g/dL (31.0-37.0); MCV 89.6 fL (80.0-100.0); Mean Platelet Volume 7.4; Monocytes # (A) 0.6 k/uL (0-1.0); Monocytes % (A) 8 %; Neutrophils # (A) 3.5 k/uL (1.3-7.7); Neutrophils % (A) 49 %; Platelet Count 231 k/uL (150-450); RBC 4.37 m/uL (3.80-5.40); RDW 12.7 % (11.5-15.5); WBC 7.3 k/uL (3.8-10.6)
[2024-12-24 05:58] LABS: ALT 29 U/L (4-34); AST 44 U/L (14-36); African American GFR (CKD) >90 (>60 ml/min/1.73 sqM); Albumin 3.6 g/dL (3.5-5.0); Alkaline Phosphatase 55 U/L (38-126); Anion Gap 9 mmol/L; Blood Urea Nitrogen 17 mg/dL (7-17); Calcium 9.1 mg/dL (8.4-10.2); Carbon Dioxide 24 mmol/L (22-30); Chloride 103 mmol/L (98-107); Glucose 123 mg/dL (74-99); Non-African American GFR(CKD) 87 (>60 ml/min/1.73 sqM); Potassium 3.8 mmol/L (3.5-5.1); Sodium 136 mmol/L (137-145); Total Bilirubin 0.8 mg/dL (0.2-1.3); Total Protein 5.9 g/dL (6.3-8.2)
[2024-12-24 06:47] LABS: Glucose,Whole Blood 131 mg/dL (70-110)
[2024-12-24] MEDS: SYMBICORT 80-4.5 MCG INHALER INHALATION SCH (10:48)
[2024-12-24 12:01] LABS: Glucose,Whole Blood 107 mg/dL (70-110)
--- NOTE | 2024-12-24 17:13 | P.PN ---
Subjective Progress Note Date: 12/24/24 Hospital course: Patient is a 64-year female with coronary artery disease, type 2 diabetes, asthma, history of cancer presenting with chest pain and STEMI status post left heart catheterization with proximal LAD stent. Patient states 2 days ago after work she felt a pressure-like pain across her upper back and shoulders. She did not think too much of it at the time and tried to sleep it off. The next morning she woke up with chest pain that she describes as a constant, pressure- like pain, that radiated down both arms and neck. She also says she felt nauseous and threw up a couple times at home before deciding to go to the emergency department. She is being seen status post left heart catheterization with stent placement in the proximal LAD. She feels much better after the procedure, although she says she had some difficulty sleeping. Patient denies any current chest pain, fever, chills, shortness of breath, nausea, vomiting, abdominal pain. Echocardiogram Doppler showing ischemic cardiomyopathy with moderate LV dysfunction with an ejection fraction of 40% secondary to prior myocardial infarction in LAD distribution, mild aortic regurg WBC 9.2, Hgb 13.1, platelet 209, sodium 139, potassium 4.3, BUN 10, creatinine 0.6, glucose 139. T98.5 F, ND 62, RR 14, BP 125/83 Subjective: Patient seen and evaluated bedside. No acute complaints. No acute events overnight. She states that her chest pain has resolved. States that she has been having difficulty sleeping. Review of systems: Pertinent positives and negatives as discussed in HPI, a complete review of systems was performed and all other systems are negative. Social history: Tobacco: Intermittent smoker for the past 15 years Alcohol: Rarely Recreational drugs: Denies illicit drug use Physical examination: Vital signs reviewed General: non toxic, no distress, appears at stated age, normal weight Derm: no unusual rashes/lesions, warm Head: atraumatic, normocephalic, symmetric Eyes: EOMI, anicteric sclera, pupils equal round reactive to light ENT: Nose and ears atraumatic Mouth: no lip lesion, mucus membranes moist Cardiovascular: S1S2 reg, no murmur, positive dorsalis pedis pulse bilateral, no edema Lungs: CTA bilateral, no rhonchi, no rales, no accessory muscle use Abdominal: soft, nontender to palpation, no guarding Ext: muscle strength 5 out of 5 in all 4 extremities grossly, no gross muscle atrophy Neuro: CN II-XI grossly intact, no gross focal neuro deficits Psych: Alert, oriented to person, place, and time Assessment/Plan: Patient is a 64-year female with coronary artery disease, type 2 diabetes, asthma, history of cancer presenting with chest pain and STEMI status post left heart catheterization with proximal LAD stent. #. STEMI status post left heart catheterization with proximal LAD stent #. Ischemic cardiomyopathy (EF 40%) #. Coronary artery disease #. Hypertension Echocardiogram Doppler showing ischemic cardiomyopathy with moderate LV dysfunction with an ejection fraction of 40% Placed on dual anti-platelet therapy with aspirin 81 mg and Brilinta 90 mg for least 1 month Atorvastatin 80 mg p.o. at bedtime Placed on losartan 25 mg p.o. daily by cardiology Nitrostat 0.4 mg sublingual as needed Recommended smoking cessation Cardiac telemetry Cardiology following, awaiting clearance from cardiology #. Type 2 diabetes Hold home metformin Placed on low scale insulin sliding scale Accu-Cheks Monitor for hypoglycemia #. Symptomatic bradycardia Was given 0.5 mg IV atropine by cardiology Chronic: #. History of asthma Resume home as inhalers #. Insomnia Melatonin 5 mg PO at bedtime as needed F: N/A E: Replete as needed N: Heart healthy diet A: Independently ambulatory at baseline DVT prophylaxis: Lovenox 40 SQ daily CODE STATUS: Full code Discussed with: Patient Anticipated discharge place: Home Kamaljit Thomas MD PGY-1 IM I saw and evaluated the patient during the devine and critical portions of this encounter, and discussed the case in detail with the resident author of this note, I agree with the Assessment and Plan, and my changes, if any, are highlighted in blue. Dictation was produced using [employer] dictation software. please excuse any grammatical, word or spelling errors. Objective - Vital Signs Vital signs: Vital Signs Temp 97.8 F 12/24/24 04:00 Pulse 73 12/24/24 04:00 Resp 14 12/24/24 04:00 BP 93/70 12/24/24 04:00 Pulse Ox 96 12/24/24 04:00 FiO2 Intake & Output 12/23/24 12/23/24 12/24/24 06:59 18:59 06:59 Intake Total 450 970 600 Output Total 1600 2700 0 Balance -1150 -1730 600 Weight 86.4 kg 83.3 kg Intake: IV 450 Sodium Chloride 0.9% 1, 450 000 ml In Empty Bag 1 bag @ 75 mls/hr IV .[id number] [facility] Rx#:[id number] Oral 970 600 Output: Urine 1600 2700 0 Other: Voiding Method Toilet Toilet Toilet # Voids 0 - Labs CBC & Chem 7: 12/24/24 05:10 12/24/24 05:10 Labs: Abnormal Lab Results - Last 24 Hours (Table) 12/23/24 12/23/24 12/23/24 Range/Units 07:00 11:33 16:35 Sodium (137-145) mmol/L Glucose (74-99) mg/dL POC Glucose (mg/dL) 149 H 117 H 179 H (70-110) mg/dL AST (14-36) U/L Total Protein (6.3-8.2) g/dL 12/23/24 12/24/24 12/24/24 Range/Units 21:51 05:10 06:46 Sodium 136 L (137-145) mmol/L Glucose 123 H (74-99) mg/dL POC Glucose (mg/dL) 117 H 131 H (70-110) mg/dL AST 44 H (14-36) U/L Total Protein 5.9 L (6.3-8.2) g/dL
--- NOTE | 2024-12-24 17:52 | P.PN ---
Progress Note - Text Darleen Moyer is sitting up comfortably in bed and while she has no chest discomfort she says that if she lies down she has to sit up because she cannot breathe I replicated this by making her lie down and she found it difficult to breathe and had to set up. No arrhythmias at that time heart rate within normal She was admitted with an acute anterior wall PA and she underwent stenting to the LAD A follow-up 2D echo shows ejection fraction of 40% Yesterday Dr. Mar had given IV Lasix for the same finding and had suggested [facility] discharge until Tuesday. I would concur On examination, blood pressure 97/64 mmHg pulse rate in the 70s afebrile Normal heart sounds normal S1 normal S2 no murmurs Lungs are clear to auscultation no rhonchi no crackles Labs reviewed hemoglobin 13 Electrolytes normal Impression acute anterior wall PA LV dysfunction ejection fraction 40%, ischemic cardiomyopathy Pain-free but complains of orthopnea and PND Suggest IV Lasix once again today Stop p.o. Lasix and start spironolactone 25 mg p.o. daily and increase prior lactone tomorrow Observe for the next 24 to 48 hours and treat with IV Lasix as needed as well as afterload reduction and beta-blockers Aspirin 81 mg atorvastatin 80 mg losartan 25 mg and metoprolol 25 mg twice daily to continue
[2024-12-24] MEDS: FUROSEMIDE 10 MG/ML 2 ML VIAL IV ONE (18:00)
[2024-12-24] MEDS: PANTOPRAZOLE 40 MG TABLET PO SCH (18:00)
[2024-12-24 18:06] LABS: Glucose,Whole Blood 201 mg/dL (70-110)
[2024-12-24 21:45] LABS: Glucose,Whole Blood 147 mg/dL (70-110)
[2024-12-24] MEDS: SPIRONOLACTONE 25 MG TAB PO SCH (21:46)
[2024-12-25 07:05] LABS: Glucose,Whole Blood 142 mg/dL (70-110)
[2024-12-25 08:58] VITALS: TEMP 97.9
[2024-12-25 09:50] LABS: African American GFR (CKD) 85 (>60 ml/min/1.73 sqM); Anion Gap 12 mmol/L; Blood Urea Nitrogen 17 mg/dL (7-17); Calcium 9.5 mg/dL (8.4-10.2); Carbon Dioxide 27 mmol/L (22-30); Chloride 99 mmol/L (98-107); Glucose 199 mg/dL (74-99); Non-African American GFR(CKD) 74 (>60 ml/min/1.73 sqM); Potassium 4.2 mmol/L (3.5-5.1); Sodium 138 mmol/L (137-145)
[2024-12-25] MEDS: METOPROLOL TARTRATE 25 MG TAB PO STA (11:02)
[2024-12-25 11:20] VITALS: RESP 18
[2024-12-25 11:30] LABS: Glucose,Whole Blood 151 mg/dL (70-110)
[2024-12-25 12:37] LABS: Glucose,Whole Blood 134 mg/dL (70-110)
[2024-12-25 13:24] VITALS: BP 116/82; PULSE 73
--- NOTE | 2024-12-25 13:59 | P.DS ---
Providers Date of admission: 12/22/24 10:37 Discharge Diagnosis: STEMI status post left heart catheterization with proximal LAD stent Ischemic cardiomyopathy, EF 40% CAD Hypertension Type 2 diabetes Symptomatic History of asthma Hospital Course: Patient is a 64-year female with coronary artery disease, type 2 diabetes, asthma, history of cancer presenting with chest pain and STEMI being seen in ICU after successful left heart catheterization with proximal LAD stent. Patient states 2 days ago after work she felt a pressure-like pain across her upper back and shoulders. She did not think too much of it at the time and tried to sleep it off. The next morning she woke up with chest pain that she describes as a constant, pressure-like pain, that radiated down both arms and neck. She also says she felt nauseous and threw up a couple times at home before deciding to go to the emergency department. She is being seen status post left heart catheterization with stent placement in the proximal LAD. She feels much better after the procedure, although she says she had some difficulty sleeping. Patient denies any current chest pain, fever, chills, shortness of breath, nausea, vomiting, abdominal pain. Echocardiogram Doppler showing ischemic cardiomyopathy with moderate LV dysfunct ion with an ejection fraction of 40% secondary to prior myocardial infarction in LAD distribution, mild aortic regurg WBC 9.2, Hgb 13.1, platelet 209, sodium 139, potassium 4.3, BUN 10, creatinine 0.6, glucose 139. T98.5 F, RI 62, RR 14, BP 125/83 Patient was eventually downgraded to general medicine floor. While admitted patient echo showing ischemic cardiomyopathy with ejection fraction of 40%. She had complaint of PND and orthopnea and was given Lasix. Following morning patient states she felt much better and did not have complaints of PND or orthopnea. She is being discharged with dual antiplatelet therapy and GDMT. Patient is to follow-up with her PCP and [facility]. Patient is being discharged home. Vital signs reviewed and stable. Physical examination: Vital signs reviewed General: non toxic, no distress, appears at stated age, normal weight Derm: no unusual rashes/lesions, warm Head: atraumatic, normocephalic, symmetric Eyes: EOMI, anicteric sclera, pupils equal round reactive to light ENT: Nose and ears atraumatic Neck: No cervical lymphadenopathy, trachea midline, supple Mouth: no lip lesion, mucus membranes moist Cardiovascular: S1S2 reg, no murmur, positive dorsalis pedis pulse bilateral, no edema Lungs: CTA bilateral, no rhonchi, no rales, no accessory muscle use Abdominal: soft, nontender to palpation, no guarding Ext: muscle strength 5 out of 5 in all 4 extremities grossly, no gross muscle atrophy Neuro: CN II-XI grossly intact, no gross focal neuro deficits Psych: Alert, oriented to person, place, and time A total of greater than 30 minutes of time were spent preparing this complex discharge summary. Patient was discharge on December 25, 2024 at 12:49. Kamaljit Thomas MD PGY-1 IM Dictation was produced using [employer] dictation software. please excuse any grammatical, word or spelling errors. I saw and evaluated the patient during the devine and critical portions of this encounter, and discussed the case in detail with the resident author of this note, I agree with the Assessment and Plan, and my changes, if any, are highlighted in blue. Expected date of discharge: 12/25/24 Attending physician: Thee Rodrigues MD Consults: 12/22/24 11:52 Consult Physician Routine Consulting Provider: [facility] Consult Reason/Comments: Post Interventional Patient Do you want consulting provider notified?: Already Contacted Primary care physician: Saúl Tucker Plan - Discharge Summary Discharge Rx Participant: No New Discharge Prescriptions: New Ticagrelor [Brilinta] 90 mg PO BID #60 tab Spironolactone [Aldactone] 25 mg PO DAILY #30 tab Losartan [Cozaar] 25 mg PO DAILY #30 tab Metoprolol Tartrate [Lopressor] 50 mg PO BID #60 tab Rosuvastatin Calcium [Crestor] 40 mg PO HS #30 tablet Continue Albuterol Sulfate [Ventolin HFA] 2 puff INHALATION RT-Q4H PRN PRN Reason: Shortness Of Breath metFORMIN HCL [Glucophage] 500 mg PO BID Fluticasone Propion/Salmeterol [Wixela 250-50 Inhub] 1 puff INHALATION RT-BID Aspirin EC [Ecotrin Low Dose] 81 mg PO Q7D Discontinued Losartan [Cozaar] 50 mg PO HS Rosuvastatin [Crestor] 10 mg PO HS Discharge Medication List Albuterol Sulfate [Ventolin HFA] 2 puff INHALATION RT-Q4H PRN 12/22/24 [History] Aspirin EC [Ecotrin Low Dose] 81 mg PO Q7D 12/22/24 [History] Fluticasone Propion/Salmeterol [Wixela 250-50 Inhub] 1 puff INHALATION RT-BID 12/22/24 [History] metFORMIN HCL [Glucophage] 500 mg PO BID 12/22/24 [History] Losartan [Cozaar] 25 mg PO DAILY #30 tab 12/25/24 [Rx] Metoprolol Tartrate [Lopressor] 50 mg PO BID #60 tab 12/25/24 [Rx] Rosuvastatin Calcium [Crestor] 40 mg PO HS #30 tablet 12/25/24 [Rx] Spironolactone [Aldactone] 25 mg PO DAILY #30 tab 12/25/24 [Rx] Ticagrelor [Brilinta] 90 mg PO BID #60 tab 12/25/24 [Rx] Follow up Appointment(s)/Referral(s): Abraham Dorsey MD [STAFF PHYSICIAN] - 1 Week (please call to make your own appointment ) Luis Tucker MD [STAFF PHYSICIAN] - 1-2 Days (please call to make your own appointment ) Patient Instructions/Handouts: Heart Attack (DC), Surgical Site Infections (GEN), After Radial Heart Catheterization (GEN) Activity/Diet/Wound Care/Special Instructions: Please see PCP and cardiology. Discharge Disposition: HOME SELF-CARE
[2024-12-25] MEDS ORDERED: METOPROLOL TARTRATE 50 MG TAB PO SCH (21:00)
== END 2024-12-25 14:00 | disposition home or self-care (01) | DRG 322 ==
LOC: 2SICU 10:37
PROVIDERS: ADMIT Internal Medicine; ATTEND Internal Medicine
PROC: 027034Z Dilation of Coronary Artery, One Artery with Drug-eluting Intraluminal Device, Percutaneous Approach (ICD-10-PCS; principal; 2024-12-22 10:39)
PROC: B240ZZ3 Ultrasonography of Single Coronary Artery, Intravascular (ICD-10-PCS; principal; 2024-12-22 10:39)
PROC: B2111ZZ Fluoroscopy of Multiple Coronary Arteries using Low Osmolar Contrast (ICD-10-PCS; principal; 2024-12-22 10:39)
PROC: 02C03ZZ Extirpation of Matter from Coronary Artery, One Artery, Percutaneous Approach (ICD-10-PCS; principal; 2024-12-22 10:39)
PROC: 4A023N7 Measurement of Cardiac Sampling and Pressure, Left Heart, Percutaneous Approach (ICD-10-PCS; principal; 2024-12-22 10:39)
DX: I21.09 ST elevation (STEMI) myocardial infarction involving other coronary artery of anterior wall (principal); E11.9 Type 2 diabetes mellitus without complications; J45.909 Unspecified asthma, uncomplicated; I10 Essential (primary) hypertension; E66.9 Obesity, unspecified; M17.0 Bilateral primary osteoarthritis of knee; M16.0 Bilateral primary osteoarthritis of hip; M19.09 Primary osteoarthritis, other specified site; I25.10 Atherosclerotic heart disease of native coronary artery without angina pectoris; I25.5 Ischemic cardiomyopathy; R00.1 Bradycardia, unspecified; G47.00 Insomnia, unspecified; F17.200 Nicotine dependence, unspecified, uncomplicated; E78.5 Hyperlipidemia, unspecified; K21.9 Gastro-esophageal reflux disease without esophagitis; Z68.30 Body mass index [BMI] 30.0-30.9, adult; Z79.82 Long term (current) use of aspirin; Z79.84 Long term (current) use of oral hypoglycemic drugs; Z79.899 Other long term (current) drug therapy; Z79.51 Long term (current) use of inhaled steroids; Z85.828 Personal history of other malignant neoplasm of skin; Z86.73 Personal history of transient ischemic attack (TIA), and cerebral infarction without residual deficits; Z86.718 Personal history of other venous thrombosis and embolism
CPT/HCPCS: 80048; 80053; 83735; 84484; 85025; 85027; 92978; 93306; 93454